=== PATIENT | male | born 1985 | race Caucasian/White ===

== ENCOUNTER 2022-08-20 03:04 | Emergency (ER) | payer MEDICAID ==
[~2022-08-20] VITALS: Ht 172.7 cm; Wt 82.0 kg
[2022-08-20] MEDS ORDERED: LIDOCAINE 5% PATCH TOP SCH (04:15)
[2022-08-20] MEDS ORDERED: KETOROLAC 30MG/ML VIAL IV ONE (04:15)
[2022-08-20 04:52] LABS: BASOPHILS % 0.5 % (0.0-2.0); EOSINOPHILS % 2.4 % (0.0-5.0); HEMATOCRIT. 42.2 % (42.0-52.0); LYMPHOCYTES % 37.7 % (20.0-50.0); MEAN CORPUSCULAR VOLUME 86.9 fL (80.0-94.0); MEAN PLATELET VOLUME 9.7 fl (7.4-10.4); MONOCYTES % 6.4 % (2.0-8.0); PLATELET 222 x1000/uL (130-400); RED BLOOD CELL COUNT 4.85 mill/uL (4.7-6.1); RED CELL DISTRIBUTION WIDTH 13.7 % (11.6-14.6)
[2022-08-20 05:01] LABS: CLARITY URINE CLEAR (CLEAR); COLOR URINE YELLOW (YELLOW); KETONES URINE TRACE (NEGATIVE); LEUKOCYTE ESTERASE URINE NEGATIVE (NEGATIVE); NITRITE URINE NEGATIVE (NEGATIVE); OCCULT BLOOD URINE NEGATIVE (NEGATIVE); PH URINE 5.5 (4.5-8.0); PROTEIN URINE TRACE (NEGATIVE)
[2022-08-20 05:03] LABS: CHLORIDE 106 mEq/L (98-107)
[2022-08-20 05:05] VITALS: BP 133/71
[2022-08-20] MEDS ORDERED: NAPR-681 MT (05:24)
== END 2022-08-20 05:35 | disposition home or self-care (01) ==
LOC: ER 03:24
DX: S39.012A Strain of muscle, fascia and tendon of lower back, initial encounter (principal); X58.XXXA Exposure to other specified factors, initial encounter; Y93.9 Activity, unspecified; Y92.9 Unspecified place or not applicable
CPT/HCPCS: 36415; 74176; 80053; 81003; 83690; 85025; 96374; 99285; J1885